=== PATIENT | male | born 1955 | race Caucasian/White ===

== ENCOUNTER 2017-09-10 15:35 | Emergency (ER) | payer OTHER ==
[~2017-09-10] VITALS: Ht 177.8 cm; Wt 113.6 kg
[2017-09-10] MEDS ORDERED: orphenadrine citrate 60mg/2ml inj. IM ONE (17:40)
[2017-09-10] MEDS ORDERED: HYDROcodone/acetaminophen 10/325mg tab PO ONE (17:40)
[2017-09-10] MEDS ORDERED: ketorolac trometh inj. 60 MG/2 ML VIAL IM ONE (17:40)
[2017-09-10] MEDS ORDERED: NAPR-56 PO (17:50)
[2017-09-10] MEDS ORDERED: CYCL-1 PO (17:50)
[2017-09-10] MEDS ORDERED: HYDR-569 PO (17:59)
[2017-09-10 18:10] VITALS: BP 152/103
== END 2017-09-10 18:11 | disposition home or self-care (01) ==
LOC: ER 15:36
DX: M54.32 Sciatica, left side (principal); Z79.899 Other long term (current) drug therapy
CPT/HCPCS: 72100; 96372; 99284; J1885; J2360

== ENCOUNTER → 2017-09-14 | Outpatient (CLI) | payer OTHER ==
[~2017-09-14] MED LIST: CYCL-1 PO; HYDR-569 PO; NAPR-56 PO
== END ==
LOC: RAD 12:31
PROVIDERS: ATTEND Family Medicine
DX: M48.061 Spinal stenosis, lumbar region without neurogenic claudication (principal); S34.105A Unspecified injury to L5 level of lumbar spinal cord, initial encounter; X58.XXXA Exposure to other specified factors, initial encounter; Y93.89 Activity, other specified; Y92.89 Other specified places as the place of occurrence of the external cause; Y99.8 Other external cause status
CPT/HCPCS: 72148

== ENCOUNTER 2017-12-12 11:36 | Outpatient (CLI) | payer OTHER ==
[~2017-12-12 11:36] MED LIST changes: -NAPR-56 PO
[2017-12-14 06:15] LABS: PSA, ULTRASENSITIVE W/O SERIAL 0.803 ng/mL (0.000-4.000)
[2017-12-14 16:03] LABS: TESTOSTERONE, FREE, DIRECT 12.6 pg/mL (7.2-24.0)
== END 2017-12-12 23:59 | disposition home or self-care (01) ==
LOC: LAB 11:36
PROVIDERS: ATTEND Family Medicine
DX: Z00.01 Encounter for general adult medical examination with abnormal findings (principal); Z87.891 Personal history of nicotine dependence
CPT/HCPCS: 36415; 84153; 84402; 84403

== ENCOUNTER 2018-08-05 12:23 | Outpatient (CLI) | payer OTHER ==
[~2018-08-05 12:23] MED LIST changes: +HYDR-4383 PO; -HYDR-569 PO
== END 2018-08-05 23:59 | disposition home or self-care (01) ==
LOC: RAD 12:23
PROVIDERS: ATTEND Family Medicine
DX: S83.241A Other tear of medial meniscus, current injury, right knee, initial encounter (principal); M17.11 Unilateral primary osteoarthritis, right knee; X58.XXXA Exposure to other specified factors, initial encounter; Y93.89 Activity, other specified; Y92.89 Other specified places as the place of occurrence of the external cause; Y99.8 Other external cause status
CPT/HCPCS: 73564; 73721

== ENCOUNTER 2019-02-11 12:17 | Outpatient (CLI) | payer OTHER ==
[2019-02-11 12:51] LABS: BASOPHILS # (AUTO) 0.1 X10'3 (0-0.2); BASOPHILS % (AUTO) 1.1 % (0-1); EOSINOPHILS # (AUTO) 0.2 X10'3 (0-0.9); EOSINOPHILS % (AUTO) 4.4 % (0-6); HEMATOCRIT 33.5 % (42.0-52.0); HEMOGLOBIN 10.4 g/dl (14.0-17.9); LYMPHOCYTES # (AUTO) 1.8 X10'3 (1.1-4.8); LYMPHOCYTES % (AUTO) 31.5 % (21-51); MEAN CORPUSCULAR HGB CONC 30.9 g/dL (33.0-36.5); MEAN CORPUSCULAR VOLUME 64.6 FL (78-98); MEAN PLATELET VOLUME 8.3 FL (7.4-10.4); MONOCYTES # (AUTO) 0.5 X10'3 (0-0.9); MONOCYTES % (AUTO) 9.4 % (2-12); NEUTROPHILS # (AUTO) 3.1 X10'3 (1.8-7.7); NEUTROPHILS % (AUTO) 53.6 % (42-75); PLATELET COUNT 282 X10'3 (140-440); RED BLOOD COUNT 5.18 X10'6 (4.70-6.10); RED CELL DISTRIBUTION WIDTH 18.6 % (11.5-14.5); WHITE BLOOD COUNT 5.7 X10'3 (4.5-11.0)
[2019-02-11 12:52] LABS: CLARITY,URINE CLEAR (Clear); COLOR,URINE YELLOW (Yellow); GLUCOSE, URINE NEGATIVE (Neg); KETONES,URINE NEGATIVE (Neg); LEUKOCYTE ESTERASE ,URINE NEGATIVE (Neg); NITRITES, URINE NEGATIVE (Neg); OCCULT BLOOD,URINE NEGATIVE (Neg); PH,URINE 5.5 (4.8-8.0); PROTEIN,URINE NEGATIVE (Neg); UROBILINOGEN,URINE 0.2 E.U/dL (0.2-1.0)
[2019-02-11 12:55] LABS: UA COLLECTION TYPE VOIDED
[2019-02-11 13:05] LABS: ALANINE AMINOTRANSFERASE 24 U/L (12-78); ALBUMIN/GLOBULIN RATIO 1.1 (1.1-1.5); ALKALINE PHOSPHATASE 97 IU/L (46-116); ANION GAP 9 (8-16); ASPARTATE AMINO TRANSFERASE 18 U/L (10-37); BILIRUBIN,TOTAL 0.5 MG/DL (0.1-1.0); BLOOD UREA NITROGEN 17 MG/DL (7-18); BUN/CREATININE RATIO 16.8 (5.4-32.0); CALCIUM 8.9 MG/DL (8.5-10.1); CHLORIDE 102 MMOL/L (99-107); CHOL/HDL RATIO 4.8 (0.00-4.99); CHOLESTEROL 171 MG/DL (0-200); CREATININE 1.01 MG/DL (0.60-1.10); GLUCOSE 105 MG/DL (70-104); HDL CHOLESTEROL 36 MG/DL (35-60); LDL CHOLESTEROL 101 MG/DL (50-100); POTASSIUM 3.9 MMOL/L (3.5-5.1); SODIUM 137 MMOL/L (135-145); TOTAL CARBON DIOXIDE 26.2 MMOL/L (24-32); TOTAL PROTEIN 7.6 G/DL (6.4-8.2); TRIGLYCERIDES 209 MG/DL (20-135); eGFR 75 ML/MIN
[2019-02-11 13:51] LABS: ANISOCYTOSIS 2+; LARGE PLATELETS FEW; MICROCYTOSIS 2+; PLATELET ESTIMATE NORMAL
[2019-02-11 13:52] LABS: HYPOCHROMASIA 1+; POLYCHROMASIA 1+
[2019-02-15 15:15] LABS: TESTOSTERONE, FREE, DIRECT 6.2 pg/mL (6.6-18.1)
== END 2019-02-11 23:59 | disposition home or self-care (01) ==
LOC: LAB 12:17
PROVIDERS: ATTEND Family Medicine
DX: Z00.00 Encounter for general adult medical examination without abnormal findings (principal)
CPT/HCPCS: 36415; 80053; 80061; 81003; 84402; 84403; 85025

== ENCOUNTER 2019-03-13 09:30 | Day surgery (SDC) | payer OTHER ==
[~2019-03-13] VITALS: Ht 177.8 cm; Wt 118.2 kg
[2019-03-13 09:30] VITALS: BP 149/93
[2019-03-13] MEDS ORDERED: ESOM40CA49 PO (09:45)
[2019-03-13] MEDS ORDERED: NAPR250T4 PO (09:46)
[2019-03-13] MEDS ORDERED: HYDR-4383 PO (09:46)
[2019-03-13] MEDS ORDERED: fentaNYL/PF 50MCG/1 ML 2ML syringe ONE (09:59)
[2019-03-13] MEDS ORDERED: MIDAZolam 5mg/5ml vial ONE (10:00)
[2019-03-13] MEDS ORDERED: LIDOcaine Viscous 15ml cup ONE (10:00)
[2019-03-13 10:55] VITALS: BP 141/72
[2019-03-13 11:05] VITALS: BP 144/77
[2019-03-13 11:15] VITALS: BP 136/85
[2019-03-13 11:25] VITALS: BP 138/87
== END 2019-03-13 11:35 | disposition home or self-care (01) ==
LOC: GI LAB 09:30
PROVIDERS: ATTEND Internal Medicine Gastroenterology
DX: Z12.11 Encounter for screening for malignant neoplasm of colon (principal); K22.70 Barrett's esophagus without dysplasia; K62.1 Rectal polyp; D12.5 Benign neoplasm of sigmoid colon; K57.30 Diverticulosis of large intestine without perforation or abscess without bleeding; K20.8 Other esophagitis; K44.9 Diaphragmatic hernia without obstruction or gangrene; K31.7 Polyp of stomach and duodenum; Z86.010 Personal history of colon polyps
CPT/HCPCS: 43239; 45380; 45381; 45385; 99152; 99153; C1773; J2250; J3010; J7040; A4620

== ENCOUNTER 2019-12-16 14:29 | Outpatient (CLI) | payer OTHER ==
[~2019-12-16 14:29] MED LIST changes: -CYCL-1 PO; +ESOM40CA49 PO; +NAPR250T4 PO
[2019-12-16 14:59] LABS: BASOPHILS % (AUTO) 0.8 % (0-1); EOSINOPHILS # (AUTO) 0.2 X10'3 (0-0.9); EOSINOPHILS % (AUTO) 3.3 % (0-6); HEMATOCRIT 38.7 % (42.0-52.0); HEMOGLOBIN 12.2 g/dl (14.0-17.9); LYMPHOCYTES % (AUTO) 35.8 % (21-51); MEAN CORPUSCULAR HEMOGLOBIN 22.8 PG (27.0-31.0); MEAN CORPUSCULAR HGB CONC 31.5 g/dL (33.0-36.5); MEAN CORPUSCULAR VOLUME 72.3 FL (78-98); MEAN PLATELET VOLUME 7.2 FL (7.4-10.4); MONOCYTES # (AUTO) 0.7 X10'3 (0-0.9); MONOCYTES % (AUTO) 12.1 % (2-12); NEUTROPHILS # (AUTO) 2.7 X10'3 (1.8-7.7); PLATELET COUNT 281 X10'3 (140-440); RED BLOOD COUNT 5.36 X10'6 (4.70-6.10); WHITE BLOOD COUNT 5.6 X10'3 (4.5-11.0)
[2019-12-16 15:19] LABS: % IRON SATURATION 4 % (11-46); IRON 21 UG/DL (53-167); TOTAL IRON BINDING CAPACITY 469 UG/DL (259-388)
[2019-12-16 15:35] LABS: PLATELET ESTIMATE NORMAL; POLYCHROMASIA FEW
[2019-12-16 15:36] LABS: ANISOCYTOSIS 2+; ELLIPTOCYTES FEW; HYPOCHROMASIA 1+; MICROCYTOSIS 1+; STOMATOCYTES 1+
== END 2019-12-16 23:59 | disposition home or self-care (01) ==
LOC: LAB 14:29
PROVIDERS: ATTEND Family Medicine
DX: D64.89 Other specified anemias (principal)
CPT/HCPCS: 36415; 83540; 83550; 85008; 85025

== ENCOUNTER → 2021-02-16 | Outpatient (CLI) | payer BC ==
[~2021-02-16] MED LIST changes: +NAPR-1170 PO; -NAPR250T4 PO
[2021-02-16 11:35] LABS: BASOPHILS % (AUTO) 1.1 % (0-1); EOSINOPHILS # (AUTO) 0.2 X10'3 (0-0.9); EOSINOPHILS % (AUTO) 3.7 % (0-6); HEMATOCRIT 47.2 % (42.0-52.0); HEMOGLOBIN 16.3 g/dl (14.0-17.9); LYMPHOCYTES # (AUTO) 1.6 X10'3 (1.1-4.8); LYMPHOCYTES % (AUTO) 36.5 % (21-51); MEAN CORPUSCULAR HEMOGLOBIN 30.7 PG (27.0-31.0); MEAN CORPUSCULAR HGB CONC 34.7 g/dL (33.0-36.5); MEAN CORPUSCULAR VOLUME 88.7 FL (78-98); MEAN PLATELET VOLUME 7.7 FL (7.4-10.4); MONOCYTES # (AUTO) 0.4 X10'3 (0-0.9); MONOCYTES % (AUTO) 8.8 % (2-12); NEUTROPHILS # (AUTO) 2.3 X10'3 (1.8-7.7); NEUTROPHILS % (AUTO) 49.9 % (42-75); PLATELET COUNT 218 X10'3 (140-440); RED BLOOD COUNT 5.32 X10'6 (4.70-6.10); RED CELL DISTRIBUTION WIDTH 14.5 % (11.5-14.5); WHITE BLOOD COUNT 4.5 X10'3 (4.5-11.0)
[2021-02-16 11:40] LABS: CLARITY,URINE CLEAR (Clear); COLOR,URINE YELLOW (Yellow); GLUCOSE, URINE NEGATIVE (Neg); KETONES,URINE NEGATIVE (Neg); LEUKOCYTE ESTERASE ,URINE NEGATIVE (Neg); NITRITES, URINE NEGATIVE (Neg); OCCULT BLOOD,URINE NEGATIVE (Neg); PH,URINE 5.5 (4.8-8.0); PROTEIN,URINE NEGATIVE (Neg); UROBILINOGEN,URINE 0.2 E.U/dL (0.2-1.0)
[2021-02-16 11:42] LABS: UA COLLECTION TYPE VOIDED
[2021-02-16 11:50] LABS: % IRON SATURATION 23 % (11-46); IRON 95 UG/DL (53-167); TOTAL IRON BINDING CAPACITY 414 UG/DL (259-388)
[2021-02-16 11:52] LABS: ALANINE AMINOTRANSFERASE 39 U/L (12-78); ALKALINE PHOSPHATASE 101 IU/L (46-116); ANION GAP 11 (8-16); ASPARTATE AMINO TRANSFERASE 27 U/L (10-37); BILIRUBIN,TOTAL 0.6 MG/DL (0.1-1.0); BLOOD UREA NITROGEN 13 MG/DL (7-18); BUN/CREATININE RATIO 12.9 (5.4-32.0); CALCIUM 9.2 MG/DL (8.5-10.1); CHLORIDE 104 MMOL/L (99-107); CREATININE 1.01 MG/DL (0.60-1.10); GLUCOSE 102 MG/DL (70-104); SODIUM 140 MMOL/L (135-145); TOTAL CARBON DIOXIDE 25.3 MMOL/L (24-32); TOTAL PROTEIN 7.9 G/DL (6.4-8.2); eGFR 75 ML/MIN
[2021-02-16 12:02] LABS: CHOL/HDL RATIO 5.1 (0.00-4.99); CHOLESTEROL 194 MG/DL (0-200); HDL CHOLESTEROL 38 MG/DL (35-60); LDL CHOLESTEROL 113 MG/DL (50-100); TRIGLYCERIDES 285 MG/DL (20-135)
[2021-02-16 12:09] LABS: POTASSIUM 4.3 MMOL/L (3.5-5.1)
== END | disposition home or self-care (01) ==
LOC: LAB 11:01
PROVIDERS: ATTEND Family Medicine
DX: Z00.01 Encounter for general adult medical examination with abnormal findings (principal)
CPT/HCPCS: 36415; 80053; 80061; 81003; 83540; 83550; 84153; 84439; 84443; 85025

== ENCOUNTER 2022-05-04 15:31 | Outpatient (CLI) | payer BC ==
[2022-05-04 16:07] LABS: BASOPHILS # (AUTO) 0.1 X10'3 (0-0.2); BASOPHILS % (AUTO) 1.6 % (0-1); CLARITY,URINE SLIGHTLY CLOUDY (Clear); COLOR,URINE YELLOW (Yellow); EOSINOPHILS # (AUTO) 0.2 X10'3 (0-0.9); EOSINOPHILS % (AUTO) 2.4 % (0-6); GLUCOSE, URINE NEGATIVE (Neg); HEMATOCRIT 45.4 % (42.0-52.0); HEMOGLOBIN 15.1 g/dl (14.0-17.9); KETONES,URINE NEGATIVE (Neg); LEUKOCYTE ESTERASE ,URINE NEGATIVE (Neg); LYMPHOCYTES % (AUTO) 30.5 % (21-51); MEAN CORPUSCULAR HEMOGLOBIN 27.9 PG (27.0-31.0); MEAN CORPUSCULAR HGB CONC 33.3 g/dL (33.0-36.5); MEAN CORPUSCULAR VOLUME 83.8 FL (78-98); MEAN PLATELET VOLUME 7.3 FL (7.4-10.4); MONOCYTES # (AUTO) 0.7 X10'3 (0-0.9); MONOCYTES % (AUTO) 10.3 % (2-12); NEUTROPHILS # (AUTO) 3.7 X10'3 (1.8-7.7); NEUTROPHILS % (AUTO) 55.2 % (42-75); NITRITES, URINE NEGATIVE (Neg); OCCULT BLOOD,URINE NEGATIVE (Neg); PLATELET COUNT 227 X10'3 (140-440); PROTEIN,URINE 100 mg/dl (Neg); RED BLOOD COUNT 5.42 X10'6 (4.70-6.10); UROBILINOGEN,URINE 0.2 E.U/dL (0.2-1.0); WHITE BLOOD COUNT 6.7 X10'3 (4.5-11.0)
[2022-05-04 16:10] LABS: UA COLLECTION TYPE VOIDED
[2022-05-04 16:17] LABS: ALANINE AMINOTRANSFERASE 23 U/L (12-78); ALBUMIN 3.7 G/DL (3.4-5.0); ALBUMIN/GLOBULIN RATIO 0.9 (1.1-1.5); ALKALINE PHOSPHATASE 104 IU/L (46-116); ANION GAP 10 (8-16); ASPARTATE AMINO TRANSFERASE 20 U/L (10-37); BILIRUBIN,TOTAL 0.4 MG/DL (0.1-1.0); BLOOD UREA NITROGEN 13 MG/DL (7-18); BUN/CREATININE RATIO 13.1 (5.4-32.0); CALCIUM 9.3 MG/DL (8.5-10.1); CHLORIDE 102 MMOL/L (99-107); CREATININE 0.99 MG/DL (0.60-1.10); POTASSIUM 3.6 MMOL/L (3.5-5.1); SODIUM 136 MMOL/L (135-145); TOTAL CARBON DIOXIDE 24.3 MMOL/L (24-32); TOTAL PROTEIN 7.6 G/DL (6.4-8.2); eGFR 76 ML/MIN
[2022-05-04 16:20] LABS: MUCUS STRANDS MANY /LPF (Neg); SQUAMOUS EPITHELIAL CELL,UR FEW /LPF (FEW)
[2022-05-04 16:21] LABS: SPERM MANY /HPF (NEGATIVE)
[2022-05-04 16:22] LABS: BACTERIA,URINE FEW /HPF (Neg); RBC,URINE 0-2 /HPF (0-2); WBC,URINE 0-4 /HPF (0-4)
[2022-05-04 16:26] LABS: CHOL/HDL RATIO 4.9 (0.00-4.99); CHOLESTEROL 185 MG/DL (0-200); HDL CHOLESTEROL 38 MG/DL (35-60); LDL CHOLESTEROL 98 MG/DL (50-100); TRIGLYCERIDES 458 MG/DL (20-135)
[2022-05-04 16:27] LABS: GLUCOSE 145 MG/DL (70-104)
== END 2022-05-04 23:59 | disposition home or self-care (01) ==
LOC: LAB 15:31
PROVIDERS: ATTEND Family Medicine
DX: Z00.01 Encounter for general adult medical examination with abnormal findings (principal)
CPT/HCPCS: 36415; 80053; 80061; 81001; 84439; 84443; 85025

== ENCOUNTER 2022-08-29 06:30 | Inpatient (IN) | payer BC ==
[2022-08-22 15:44] LABS: BASOPHILS # (AUTO) 0.1 X10'3 (0-0.2); BASOPHILS % (AUTO) 1.2 % (0-1); EOSINOPHILS # (AUTO) 0.2 X10'3 (0-0.9); EOSINOPHILS % (AUTO) 2.6 % (0-6); LYMPHOCYTES # (AUTO) 2.6 X10'3 (1.1-4.8); MEAN CORPUSCULAR HEMOGLOBIN 27.7 PG (27.0-31.0); MEAN CORPUSCULAR HGB CONC 33.1 g/dL (33.0-36.5); MEAN CORPUSCULAR VOLUME 83.8 FL (78-98); MEAN PLATELET VOLUME 7.2 FL (7.4-10.4); MONOCYTES # (AUTO) 0.6 X10'3 (0-0.9); MONOCYTES % (AUTO) 9.1 % (2-12); NEUTROPHILS # (AUTO) 3.4 X10'3 (1.8-7.7); NEUTROPHILS % (AUTO) 49.1 % (42-75); PRE OP HEMOGLOBIN 14.3 g/dL (14.0-17.9); PRE OP PLATELET COUNT 221 X10'3 (140-440); RED BLOOD COUNT 5.14 X10'6 (4.70-6.10); RED CELL DISTRIBUTION WIDTH 15.6 % (11.5-14.5)
[2022-08-22 16:08] LABS: ALBUMIN 3.7 G/DL (3.4-5.0); ALBUMIN/GLOBULIN RATIO 1.1 (1.1-1.5); ALKALINE PHOSPHATASE 100 IU/L (46-116); BLOOD UREA NITROGEN 10 MG/DL (7-18); BUN/CREATININE RATIO 10.3 (10.0-20.0); CALCIUM 9.1 MG/DL (8.5-10.1); CHLORIDE 103 MMOL/L (99-107); CREATININE 0.97 MG/DL (0.60-1.10); PRE OP ALT 27 U/L (30-65); PRE OP ANION GAP 7 (8-16); PRE OP AST 17 U/L (10-37); PRE OP BILIRUB, TOTAL 0.4 MG/DL (0.0-1.0); PRE OP GLUCOSE 112 MG/DL (70-104); PRE OP POTASSIUM 3.8 MMOL/L (3.4-5.1); PRE OP SODIUM 138 MMOL/L (135-145); TOTAL CARBON DIOXIDE 27.6 MMOL/L (24-32); TOTAL PROTEIN 7.1 G/DL (6.4-8.2); eGFR 78 ML/MIN
[2022-08-29] VITALS (24 sets, daily range): BP systolic 113–156; BP diastolic 62–110
[~2022-08-29] VITALS: Ht 177.8 cm; Wt 125.2 kg
[~2022-08-29 06:30] MED LIST changes: +ASCO-157 PO; +ASPI1TAB2 PO; +CHOL20004 PO; +CYAN250014 PO; +CYCL-1 PO; -ESOM40CA49 PO; +ESOM40CA54 PO; +GINK120C PO; +IBUP-24 PO; +KEN40I IM; +MAGN400T39 PO; +MULT-1141 PO; -NAPR-1170 PO; +TURM500C4 PO; +[UNRECOGNIZED DRUG - CODE] PO; +acetaminophen 325mg tablet PO ONE; +ceFAZolin inj. 3,000 MG in normal saline 100ml IV soln 100 ML IV ONE; +celeCOXIB 100mg capsule PO ONE; +famotidine 20mg tablet PO ONE; +gabapentin 300mg capsule PO ONE; +metoclopramide 5 mg/ml inj IV ONE; +oxyCODONE SR 10mg (sust. release) tab -2 tabs (20mg) PO ONE; +tranexamic acid inj. 1,000 MG in normal saline IV soln 100ML IV ONE; +vancomycin 1,500 MG in NS 300ml IV soln IV ONE
[2022-08-29] MEDS ORDERED: ROPIVAcaine 0.5% (5mg/ml) 30ml vial ONE ×2 (07:06→11:00)
[2022-08-29] MEDS ORDERED: tranexamic acid 100mg/ml inj. ONE (07:06)
[2022-08-29] MEDS ORDERED: cloNIDine hcl/PF 100mcg/ml inj ONE (07:06)
[2022-08-29] MEDS ORDERED: epiNEPHrine 1 mg/ml inj ONE (07:06)
[2022-08-29] MEDS ORDERED: ketorolac trometh. 30mg/ml inj. ONE (07:06)
[2022-08-29] MEDS ORDERED: vancomycin 1,000mg inj ONE (07:06)
[2022-08-29] MEDS ORDERED: bisacodyl 10mg suppository rectal RC PRN (07:30)
[2022-08-29] MEDS ORDERED: acetaminophen 325mg tablet PO PRN (07:30)
[2022-08-29] MEDS ORDERED: naloxone 0.4 mg/ml inj IV PRN (07:30)
[2022-08-29] MEDS ORDERED: diphenhydrAMINE 25mg capsule PO PRN ×2 (07:30)
[2022-08-29] MEDS ORDERED: HYDROmorphone inj. 0.5 MG/0.5 ML DISP.SYRIN IV PRN (07:30)
[2022-08-29] MEDS ORDERED: magnesium hydroxide 30ml (MOM) UD suspension PO PRN (07:30)
[2022-08-29] MEDS ORDERED: oxyCODONE IR 5mg (immed. release) tablet PO PRN (07:30)
[2022-08-29] MEDS ORDERED: ceFAZolin/D5W- 1GM premix 50 ML IV SCH (08:00)
[2022-08-29] MEDS ORDERED: cefazolin 2gm/D5W 100mL 100 ML IV SCH (08:00)
[2022-08-29] MEDS: ringers solution, lacted 1,000 ML IV SCH ×3 (09:06→22:25)
[2022-08-29] MEDS ORDERED: fentaNYL/PF 50MCG/1 ML 2ML syringe ONE (11:42)
[2022-08-29] MEDS ORDERED: MIDAZolam 1 MG/ML 5ML VIAL ONE (11:43)
[2022-08-29] MEDS ORDERED: ROPIVAcaine 0.2% (10 MG/5 ML) BOLUS INJECTION ADDCANAL PRN (11:45)
[2022-08-29] MEDS ORDERED: acetaminophen 1,000mg/100ml IV 100 ML IV PRN (11:45)
[2022-08-29] MEDS ORDERED: meperidine/PF 25mg/ml syringe IV PRN ×3 (11:45)
[2022-08-29] MEDS ORDERED: morphine 4 MG/ML inj SYRINge IV PRN (11:45)
[2022-08-29] MEDS ORDERED: ringers solution, lacted 1,000 ML IV SCH (11:45)
[2022-08-29] MEDS ORDERED: ROPIVAcaine 0.2%/PF PUMP/bolus 545 ML ADDCANAL SCH (11:45)
[2022-08-29] MEDS ORDERED: morphine 2 MG/ML inj. syringe IV PRN (11:45)
[2022-08-29] MEDS ORDERED: ondansetron/PF 4mg/2ml inj IV PRN (11:45)
[2022-08-29] MEDS ORDERED: proCHLORperazine 10 MG/2 ml inj IV PRN (11:45)
[2022-08-29] MEDS ORDERED: propofol inj 20 ML IV ONE ×3 (12:09)
--- NOTE | 2022-08-29 12:10 | NUR ---
per total joint replacement protocol: Patient has showered with proper cleansing soap for [address] cary does not use bactroban for his patients. There is no decreased sensation in any extremity and pedal pulses have been marked, +3.
--- NOTE | 2022-08-29 12:10 | NUR ---
ALL PERSONAL BELONGINGS WERE TAKEN BY INCLUDING PATIENTS GLASSES.
[2022-08-29] MEDS ORDERED: ROPIVAcaine 0.5% (5mg/ml) 30ml vial IJ ONE (12:36)
[2022-08-29] MEDS ORDERED: ketorolac trometh. 30mg/ml inj. IM ONE (12:37)
[2022-08-29] MEDS ORDERED: 0.9 % SODIUM CHLORIDE 10 ML VIAL ONE (12:39)
[2022-08-29] MEDS ORDERED: ePHEDrine 50MG/ML INJ. ONE (12:39)
[2022-08-29] MEDS ORDERED: cloNIDine hcl/PF 100mcg/ml inj IJ ONE (12:41)
[2022-08-29] MEDS ORDERED: epiNEPHrine 1 mg/ml inj IM ONE (12:42)
[2022-08-29] MEDS ORDERED: vancomycin 1,000mg inj IVT ONE (12:43)
--- NOTE | 2022-08-29 13:48 | NUR ---
Received from OR via HOSPITAL BED, accompanied by Anesthesiologist DR. WEST and report given by Anesthesiolgist. ST, SATS 100% ON 10L MASK. RIGHT KNEE DRESSING CDI WITH AKASH AND SLEEVE AND SAND. ONQ ATTACHED. RIGHT FA 20G PIV WITH LR INFUSING. DENIES PAIN.
[2022-08-29] MEDS ORDERED: tranexamic acid inj. 100 MG in normal saline 100ml IV soln 99 ML IV ONE (14:00)
--- NOTE | 2022-08-29 14:34 | NUR ---
ATTEMPTED TO CONTACT FOR REPORT. KEYANNA, CHARGE, STATED NO NURSE FOR PATIENT. BED NUMBER IS ASSIGNED. WILL CALL ME BACK.
[2022-08-29] MEDS ORDERED: tranexamic acid inj. 1,000 MG in normal saline 100ml IV soln 90 ML IV ONE (15:00)
--- NOTE | 2022-08-29 15:07 | NUR ---
ATTEMPTED TO CALL REPORT, [facility] STATES THEY ARE "JUST NOW GIVING OUT ROOM ASSIGNMENTS" WILL CALL ME BACK.
[2022-08-29] MEDS: labetalol 20mg/4ml (5mg/ml) syringe IV PRN ×3 (15:09→15:30)
[2022-08-29] MEDS: potassium cl 20mEq in 1/2 NS 1,000 ML IV SCH ×3 (15:30→21:49)
[2022-08-29] MEDS: hydrALAZINE 20mg/ml inj. IV PRN ×2 (15:39→15:55)
--- NOTE | 2022-08-29 15:58 | NUR ---
PATIENT MEETS DISCHARGE CRITERIA FROM REC[facility]ERY. DELAYED TRANSFER TO ROOM DUE TO STAFFING ISSUES. DENIES PAIN. BP WITHIN PREOP RANGE. RIGHT KNEE DRESSING CDI. BELONGINGS WITH PATIENT'S .
--- NOTE | 2022-08-29 16:00 | NUR ---
Patient admitted into [facility]. Alert and appropriate at this time. DAVEG CDI, pain managed at this time, denies N/V
[2022-08-29] MEDS: HYDROmorphone 1 mg/ml syringe IV PRN (16:48)
[2022-08-29] MEDS: ceFAZolin inj. 3,000 MG in dextrose 5%-water 100 ML IV SCH ×2 (16:51→23:59)
--- NOTE | 2022-08-29 17:03 | NUR ---
clinical instructor called recovery and asked if the iv blood clotter was hung, recovery nurse said ' i think anesthesia already hung it', I looked in patients chart and the paperwork in chart said that the blood clotter had been given at 1120
--- NOTE | 2022-08-29 18:00 | NUR ---
I have reviewed and agree with interventions, assessments, and documentation by Ayanna Castellanos LVN.
--- NOTE | 2022-08-29 18:00 | NUR ---
Patient in room ORTHO 4014. I have received report from CHRIS Urena and had the opportunity to ask questions and assume patient care.
[2022-08-29] MEDS ORDERED: vancomycin inj 1,750 MG in normal saline 500ml IV soln 350 ML IV ONE (20:00)
[2022-08-29] MEDS: gabapentin 300mg capsule PO SCH (20:39)
[2022-08-29] MEDS: sennosides 8.6mg tablet PO SCH (20:39)
[2022-08-29] MEDS: ondansetron/PF 4mg/2ml inj IV PRN (20:51)
[2022-08-30] MEDS: potassium cl 20mEq in 1/2 NS 1,000 ML IV SCH (00:09)
[2022-08-30] MEDS: oxyCODONE IR 5mg (immed. release) tablet PO PRN ×3 (01:13→09:56)
[2022-08-30 02:00] VITALS: BP 152/96
[2022-08-30] MEDS: ondansetron/PF 4mg/2ml inj IV PRN (05:35)
[2022-08-30 06:00] VITALS: BP 165/111
--- NOTE | 2022-08-30 06:26 | NUR ---
Problems reprioritized. Patient report given, questions answered & plan of care reviewed with CHRIS Dillon.
--- NOTE | 2022-08-30 06:40 | NUR ---
Patient in room ORTHO 4014. I have received report from Felicity and had the opportunity to ask questions and assume patient care.
[2022-08-30 06:45] LABS: ANION GAP 6 (8-16); CHLORIDE 103 MMOL/L (99-107); POTASSIUM 3.8 MMOL/L (3.5-5.1); SODIUM 138 MMOL/L (135-145); TOTAL CARBON DIOXIDE 29.4 MMOL/L (24-32)
[2022-08-30 06:49] LABS: BASOPHILS % (AUTO) 0.5 % (0-1); EOSINOPHILS # (AUTO) 0.1 X10'3 (0-0.9); EOSINOPHILS % (AUTO) 1.1 % (0-6); HEMATOCRIT 42.4 % (42.0-52.0); MEAN CORPUSCULAR VOLUME 84.7 FL (78-98); MEAN PLATELET VOLUME 7.5 FL (7.4-10.4); MONOCYTES # (AUTO) 0.8 X10'3 (0-0.9); MONOCYTES % (AUTO) 9.4 % (2-12); NEUTROPHILS # (AUTO) 6.1 X10'3 (1.8-7.7); PLATELET COUNT 183 X10'3 (140-440); RED CELL DISTRIBUTION WIDTH 15.2 % (11.5-14.5); WHITE BLOOD COUNT 8.1 X10'3 (4.5-11.0)
[2022-08-30] MEDS ORDERED: proCHLORperazine 10 MG/2 ml inj IV PRN (06:55)
[2022-08-30] MEDS: ceFAZolin inj. 3,000 MG in dextrose 5%-water 100 ML IV SCH (07:29)
[2022-08-30] MEDS: magnesium oxide 400mg tablet PO SCH (07:30)
[2022-08-30] MEDS: gabapentin 300mg capsule PO SCH ×3 (07:30→20:34)
[2022-08-30] MEDS: ascorbic acid 500mg tablet PO SCH ×2 (07:30→20:34)
[2022-08-30] MEDS: multivitamins, therapeutics tablet PO SCH (07:31)
[2022-08-30] MEDS ORDERED: pantoprazole 40mg Tablet.DR PO SCH (08:00)
[2022-08-30] MEDS: aspirin 325mg tablet PO SCH (08:16)
[2022-08-30] MEDS: HYDROmorphone 1 mg/ml syringe IV PRN ×2 (08:20→13:10)
[2022-08-30 11:00] VITALS: BP 150/90
--- NOTE | 2022-08-30 11:07 | NUR ---
Joint surgery consult: Pt s/p R knee surgery this admit per EMR. Pt seen by MARCY at bedside for written/verbal high protein diet ed w/ RD contact information provided. MARCY encouraged pt to contact dietitian's office if further nutrition questions/concerns. Addendum: 08/30/22 at [address] Amended: Links added.
[2022-08-30] MEDS ORDERED: ketorolac trometh. 30mg/ml inj. IV ONE (13:30)
[2022-08-30] MEDS ORDERED: HYDROcodone/acetaminophen 10/325mg tab PO PRN ×2 (16:45)
[2022-08-30 18:00] VITALS: BP 142/95
--- NOTE | 2022-08-30 18:23 | NUR ---
Problems reprioritized. Patient report given, questions answered & plan of care reviewed with Kaylee.
--- NOTE | 2022-08-30 18:30 | NUR ---
Patient in room ORTHO 4014. I have received report from CHRIS Dillon and had the opportunity to ask questions and assume patient care.
--- NOTE | 2022-08-30 20:30 | NUR ---
Agree with Geodesist's assessment.
[2022-08-30] MEDS: celeCOXIB 100mg capsule PO SCH (20:34)
[2022-08-30] MEDS: sennosides 8.6mg tablet PO SCH (20:35)
[2022-08-30] MEDS: ketorolac tromethamine 15mg/ml inj. IV SCH (20:53)
[2022-08-30 22:00] VITALS: BP 131/105
--- NOTE | 2022-08-31 01:02 | NUR ---
TE[employer]AR[employer] documentation: I have reviewed and agree with all interventions, assessments performed and documented by Kaylee Fuller LVN. Addendum: 08/31/22 at 0102 by Brianne Arias RN Amended: Links added.
[2022-08-31] MEDS: ketorolac tromethamine 15mg/ml inj. IV SCH ×2 (02:31→07:59)
[2022-08-31] MEDS: oxyCODONE IR 5mg (immed. release) tablet PO PRN ×2 (05:40→10:07)
--- NOTE | 2022-08-31 06:39 | NUR ---
Patient in room ORTHO 4014. I have received report from SUZIE GARCIA and had the opportunity to ask questions and assume patient care.
--- NOTE | 2022-08-31 06:46 | NUR ---
Problems reprioritized. Patient report given, questions answered & plan of care reviewed with CHRIS Del Valle.
[2022-08-31 07:13] LABS: BASOPHILS % (AUTO) 0.4 % (0-1); EOSINOPHILS # (AUTO) 0.1 X10'3 (0-0.9); EOSINOPHILS % (AUTO) 1.7 % (0-6); HEMOGLOBIN 13.6 g/dl (14.0-17.9); LYMPHOCYTES # (AUTO) 1.3 X10'3 (1.1-4.8); LYMPHOCYTES % (AUTO) 16.2 % (21-51); MEAN CORPUSCULAR HEMOGLOBIN 27.5 PG (27.0-31.0); MEAN CORPUSCULAR HGB CONC 32.5 g/dL (33.0-36.5); MEAN CORPUSCULAR VOLUME 84.6 FL (78-98); MEAN PLATELET VOLUME 7.5 FL (7.4-10.4); MONOCYTES % (AUTO) 12.8 % (2-12); NEUTROPHILS # (AUTO) 5.4 X10'3 (1.8-7.7); NEUTROPHILS % (AUTO) 68.9 % (42-75); PLATELET COUNT 164 X10'3 (140-440); RED BLOOD COUNT 4.96 X10'6 (4.70-6.10); RED CELL DISTRIBUTION WIDTH 15.4 % (11.5-14.5); WHITE BLOOD COUNT 7.8 X10'3 (4.5-11.0)
[2022-08-31] MEDS ORDERED: acetaminophen 325mg tablet PO PRN (07:30)
[2022-08-31] MEDS ORDERED: pantoprazole 40mg Tablet.DR PO SCH (07:55)
[2022-08-31] MEDS: multivitamins, therapeutics tablet PO SCH (07:58)
[2022-08-31] MEDS: ascorbic acid 500mg tablet PO SCH (07:58)
[2022-08-31] MEDS: aspirin 325mg tablet PO SCH (07:58)
[2022-08-31] MEDS: magnesium oxide 400mg tablet PO SCH (07:58)
[2022-08-31] MEDS: celeCOXIB 100mg capsule PO SCH (07:58)
[2022-08-31] MEDS: gabapentin 300mg capsule PO SCH (07:58)
[2022-08-31 09:00] VITALS: BP 137/86
--- NOTE | 2022-08-31 09:30 | NUR ---
NOTIFIED JACI UMAÑA RE: PTS BP WHILE AMBULATING WITH PT WAS 180/120. IT HAD RESOLVED WITH REST TO 137/86. SHE STATES THAT IS WAS MOST LIKELY CAUSED BY POST OP PAIN AND TO HAVE PT MONITOR AT HOME, WHICH PT HAS STATED THAT HE DOES ON A REG BASIS. OK FOR PT TO DC HOME AND F/U WITH SURGEON SCHEDULED AND PCP FOR ANY BP ISSUES.
[2022-08-31 10:00] VITALS: BP 147/99
--- NOTE | 2022-08-31 11:52 | NUR ---
pt discharged in stable condition. left facility in private vehicle with . iv dc canula intact. follow up instructions given, all questions answered. on q ball given along with instructions. all belongings in hand.
== END 2022-08-31 11:50 | disposition home or self-care (01) | DRG 470 ==
LOC: PAS 06:30 → PAS IN 07:26 → UNDOADMIN 10:43 → ORTHO 4S 17:47
PROVIDERS: ADMIT Orthopaedic Surgery; ATTEND Orthopaedic Surgery
PROC: 0SRC0J9 Replacement of Right Knee Joint with Synthetic Substitute, Cemented, Open Approach (ICD-10-PCS; principal; 2022-08-29 11:39)
DX: M17.11 Unilateral primary osteoarthritis, right knee (principal)
CPT/HCPCS: 93306; Z7506; Z7508; 36415; 73560; 80051; 80053; 82948; 85025; 86885; 86900; 86901; 87081; 93005; 97110; 97116; 97161; 97530; 97535; A4215; A7000; C1713; C1776; G0378; J0171; J0360; J0690; J0735; J1170; J1885; J2250; J2405; J2704; J2765; J2795; J3010; J3370; J3490; J7040; J7060; J7120

== ENCOUNTER 2022-11-16 06:56 | Day surgery (SDC) | payer BC ==
[~2022-11-16] VITALS: Ht 177.8 cm; Wt 127.7 kg
[~2022-11-16 06:56] MED LIST changes: -acetaminophen 325mg tablet PO ONE; -ceFAZolin inj. 3,000 MG in normal saline 100ml IV soln 100 ML IV ONE; -celeCOXIB 100mg capsule PO ONE; -famotidine 20mg tablet PO ONE; -gabapentin 300mg capsule PO ONE; -metoclopramide 5 mg/ml inj IV ONE; -oxyCODONE SR 10mg (sust. release) tab -2 tabs (20mg) PO ONE; -tranexamic acid inj. 1,000 MG in normal saline IV soln 100ML IV ONE; -vancomycin 1,500 MG in NS 300ml IV soln IV ONE
[2022-11-16 07:30] VITALS: BP 166/122; PULSE 97; RESP 18
[2022-11-16] MEDS ORDERED: fentaNYL/PF 50MCG/1 ML 2ML syringe ONE (08:15)
[2022-11-16] MEDS ORDERED: MIDAZolam 1 MG/ML 5ML VIAL ONE (08:15)
[2022-11-16] MEDS ORDERED: LIDOcaine Viscous 15ml cup ONE (08:15)
[2022-11-16 09:31] VITALS: BP 129/93; PULSE 84; RESP 14; O2SAT 95
[2022-11-16 09:41] VITALS: BP 142/95; PULSE 77; RESP 14; O2SAT 95
[2022-11-16 09:51] VITALS: BP 143/99; PULSE 82; RESP 16; O2SAT 96
[2022-11-16 10:01] VITALS: BP 135/92; PULSE 86; RESP 16; O2SAT 97
== END 2022-11-16 10:10 | disposition home or self-care (01) ==
LOC: GI LAB 06:56
PROVIDERS: ATTEND Internal Medicine Gastroenterology
DX: Z12.11 Encounter for screening for malignant neoplasm of colon (principal); D12.0 Benign neoplasm of cecum; K63.5 Polyp of colon; K57.30 Diverticulosis of large intestine without perforation or abscess without bleeding; K22.70 Barrett's esophagus without dysplasia; K31.7 Polyp of stomach and duodenum; Z86.010 Personal history of colon polyps; Z87.891 Personal history of nicotine dependence; Z72.89 Other problems related to lifestyle; Z96.651 Presence of right artificial knee joint; Z79.899 Other long term (current) drug therapy
CPT/HCPCS: 43239; 45385; 99152; 99153; C1889; J2250; J3010; J7030; Z7512; 45380; A4620

== ENCOUNTER 2023-11-02 20:43 | Emergency (ER) | payer MEDICARE, BC ==
[~2023-11-02] VITALS: Ht 175.3 cm; Wt 124.0 kg
[~2023-11-02 20:43] MED LIST changes: -ASCO-157 PO; -ASPI1TAB2 PO; -CHOL20004 PO; -CYAN250014 PO; -ESOM40CA54 PO; -GINK120C PO; -HYDR-4383 PO; -MAGN400T39 PO; -MULT-1141 PO; -TURM500C4 PO; -[UNRECOGNIZED DRUG - CODE] PO
[2023-11-02 21:36] LABS: BASOPHILS # (AUTO) 0.1 X10'3 (0-0.2); BASOPHILS % (AUTO) 0.9 % (0-1); EOSINOPHILS # (AUTO) 0.1 X10'3 (0-0.9); EOSINOPHILS % (AUTO) 1.2 % (0-6); HEMATOCRIT 44.1 % (42.0-52.0); HEMOGLOBIN 14.4 g/dl (14.0-17.9); LYMPHOCYTES # (AUTO) 3.1 X10'3 (1.1-4.8); MEAN CORPUSCULAR HEMOGLOBIN 25.3 PG (27.0-31.0); MEAN CORPUSCULAR HGB CONC 32.6 g/dL (33.0-36.5); MEAN CORPUSCULAR VOLUME 77.4 FL (78-98); MEAN PLATELET VOLUME 7.3 FL (7.4-10.4); MONOCYTES # (AUTO) 1.2 X10'3 (0-0.9); MONOCYTES % (AUTO) 10.7 % (2-12); NEUTROPHILS # (AUTO) 6.9 X10'3 (1.8-7.7); NEUTROPHILS % (AUTO) 60.2 % (42-75); PLATELET COUNT 293 X10'3 (140-440); RED CELL DISTRIBUTION WIDTH 16.8 % (11.5-14.5); WHITE BLOOD COUNT 11.5 X10'3 (4.5-11.0)
[2023-11-02 21:45] LABS: ALANINE AMINOTRANSFERASE 29 U/L (12-78); ALBUMIN 3.3 G/DL (3.4-5.0); ALBUMIN/GLOBULIN RATIO 0.8 (1.1-1.5); ALKALINE PHOSPHATASE 100 IU/L (46-116); ANION GAP 9 (8-16); ASPARTATE AMINO TRANSFERASE 19 U/L (10-37); BILIRUBIN,TOTAL 0.5 MG/DL (0.1-1.0); BLOOD UREA NITROGEN 16 MG/DL (7-18); BUN/CREATININE RATIO 13.9 (10.0-20.0); CALCIUM 9.8 MG/DL (8.5-10.1); CHLORIDE 97 MMOL/L (99-107); CREATININE 1.15 MG/DL (0.60-1.10); GLUCOSE 183 MG/DL (70-104); SODIUM 132 MMOL/L (135-145); TOTAL CARBON DIOXIDE 25.7 MMOL/L (24-32); TOTAL PROTEIN 7.5 G/DL (6.4-8.2); eCRCL 64 ML/MIN; eGFR 64 ML/MIN
[2023-11-02 22:20] LABS: POTASSIUM 2.8 MMOL/L (3.5-5.1)
[2023-11-02] MEDS: potassium Cl 40MEQ/1/2NS 520ml 520 ML IV SCH (23:25)
[2023-11-02] MEDS ORDERED: acyclovir inj 1,000 MG in normal saline 250ml IV soln 230 ML IV SCH (23:30)
[2023-11-02] MEDS: potassium Cl 20 mEq SR tablet PO ONE (23:34)
[2023-11-03] MEDS: acyclovir inj 1,000 MG in normal saline 250ml IV soln 250 ML IV SCH (01:25)
[2023-11-03] MEDS: morphine 2 MG/ML inj. syringe IV PRN (01:47)
[2023-11-03 03:11] VITALS: BP 131/94; PULSE 111; RESP 18; TEMP 98.2; O2SAT 98
== END 2023-11-03 03:11 | disposition short-term general hospital (02) ==
LOC: ER 20:43
DX: B02.30 Zoster ocular disease, unspecified (principal); E87.6 Hypokalemia; R51.9 Headache, unspecified; R11.2 Nausea with vomiting, unspecified; G89.29 Other chronic pain; M54.9 Dorsalgia, unspecified; Z79.899 Other long term (current) drug therapy; Z79.1 Long term (current) use of non-steroidal anti-inflammatories (NSAID)
CPT/HCPCS: 36415; 70450; 80053; 85025; 85651; 96365; 96366; 96368; 96375; 99285; J0133; J2270; J3480; J7050